=== PATIENT | female | born 1960 | race Caucasian/White ===

== ENCOUNTER 2018-09-12 20:16 | Emergency (ER) | payer OTHER ==
[~2018-09-12] VITALS: Ht 165.1 cm; Wt 132.4 kg
[~2018-09-12 20:16] MED LIST: LEVO50TA PO; LEVO88TA2 PO; SIMV20TA3 PO; TRAZ-137 PO
[2018-09-12 20:22] VITALS: BP 137/87
[2018-09-12 20:42] LABS: BASOPHILS # (AUTO) 0.07 x10^3/uL (0-0.1); BASOPHILS % (AUTO) 1 % (0-1); EOSINOPHILS # (AUTO) 0.44 x10^3/uL (0-0.4); EOSINOPHILS % (AUTO) 4 % (1-7); LYMPHOCYTES # (AUTO) 3.29 x10^3/uL (1-3.4); LYMPHOCYTES % (AUTO) 29 % (22-44); MD NO; MEAN CORPUSCULAR HEMOGLOBIN 32.4 pg (27.0-34.8); MEAN CORPUSCULAR HGB CONC 33.5 g/dL (32.4-35.8); MEAN CORPUSCULAR VOLUME 96.9 fL (80-100); MEAN PLATELET VOLUME 8.2 fL (7.4-10.4); MONOCYTES # (AUTO) 0.63 x10^3/uL (0.2-0.8); MONOCYTES % (AUTO) 6 % (2-9); NEUTROPHILS # (AUTO) 6.89 x10^3/uL (1.8-6.8); NEUTROPHILS % (AUTO) 61 % (42-75); PLATELET COUNT 288 x10^3/uL (130-400); RED BLOOD COUNT 4.73 x10^6/uL (3.82-5.3); RED CELL DISTRIBUTION WIDTH 15.2 % (9.6-15.2)
[2018-09-12 20:52] LABS: ANION GAP 9 mmol/L (5-15); CALCIUM 8.9 mg/dL (8.5-10.1); CHLORIDE 108 mmol/L (98-107); CREATININE 0.91 mg/dL (0.55-1.02)
== END 2018-09-12 22:26 | disposition home or self-care (01) ==
LOC: ED 22:14
DX: L03.113 Cellulitis of right upper limb (principal); I10 Essential (primary) hypertension; E11.9 Type 2 diabetes mellitus without complications; E03.9 Hypothyroidism, unspecified; F17.210 Nicotine dependence, cigarettes, uncomplicated
CPT/HCPCS: 36415; 80048; 85025; 99285

== ENCOUNTER 2019-05-11 08:53 | Emergency (ER) | payer OTHER ==
[~2019-05-11] VITALS: Ht 172.7 cm; Wt 140.0 kg
--- NOTE | 2019-05-11 09:24 | NUR ---
PRESENTS WITH BURROWING LEFT DEL VALLE WOUND UNRESPONSIVE TO ABX X 2 MONTHS (HX OF MRSA), LEFT FLANK PAIN & VAGINAL BLEEDING (POST MENAPAUSAL). APPEARS WELL, VITALS SIGNS UNREMARKABLE UPDATED ON ESTIMATED POC/URINE OBTAINED AND SENT TO LAB
[2019-05-11] MEDS ORDERED: LISI-170 PO (09:42)
[2019-05-11] MEDS ORDERED: METF500T27 PO (09:42)
[2019-05-11] MEDS ORDERED: LEVO200T PO (09:42)
[2019-05-11 09:45] LABS: CULTURE INDICATED? NO; MICROSCOPIC NOT IND
[2019-05-11 10:21] LABS: BASOPHILS # (AUTO) 0.04 x10^3/uL (0-0.1); BASOPHILS % (AUTO) 1 % (0-1); EOSINOPHILS # (AUTO) 0.53 x10^3/uL (0-0.4); EOSINOPHILS % (AUTO) 7 % (1-7); LYMPHOCYTES # (AUTO) 2.24 x10^3/uL (1-3.4); LYMPHOCYTES % (AUTO) 31 % (22-44); MD NO; MEAN CORPUSCULAR HEMOGLOBIN 31.9 pg (27.0-34.8); MEAN CORPUSCULAR HGB CONC 32.9 g/dL (32.4-35.8); MEAN CORPUSCULAR VOLUME 96.8 fL (80-100); MEAN PLATELET VOLUME 8.4 fL (7.4-10.4); MONOCYTES # (AUTO) 0.47 x10^3/uL (0.2-0.8); MONOCYTES % (AUTO) 7 % (2-9); NEUTROPHILS # (AUTO) 4.05 x10^3/uL (1.8-6.8); NEUTROPHILS % (AUTO) 55 % (42-75); PLATELET COUNT 252 x10^3/uL (130-400); RED BLOOD COUNT 4.41 x10^6/uL (3.82-5.3); RED CELL DISTRIBUTION WIDTH 14.8 % (9.6-15.2)
[2019-05-11 10:33] LABS: ALANINE AMINOTRANSFERASE 58 U/L (12-78); ALBUMIN 3.8 g/dL (3.4-5.0); ANION GAP 6 mmol/L (5-15); CALCIUM 8.9 mg/dL (8.5-10.1); CHLORIDE 110 mmol/L (98-107); CREATININE 0.75 mg/dL (0.55-1.02)
[2019-05-11 10:35] LABS: ALKALINE PHOSPHATASE 74 U/L (45-117); BILIRUBIN,TOTAL 0.3 mg/dL (0.2-1.0); TOTAL PROTEIN 6.7 g/dL (6.4-8.2)
--- NOTE | 2019-05-11 10:36 | NUR ---
WITH REASSESSMENT PATIENT RESTING COMFORTABLY ON GURNEY VITAL STABLE ON NIBP/POX MOST OF TESTING RESULTED W/ EXCEPTION OF ULTRASOUND-PROGRAM ASSISTANT CALLED RADIOLOGY. DEPARTMENT VERY BUSY AND THERY DON'T ESTIMATE SHE WILL START THE EXAM FOR ANOTHER 45MINUTES PROVIDER MADE AWARE
[2019-05-11 11:00] VITALS: BP 102/33
== END 2019-05-11 12:11 | disposition home or self-care (01) ==
LOC: ED 11:13
DX: S39.012A Strain of muscle, fascia and tendon of lower back, initial encounter (principal); B35.4 Tinea corporis; N95.0 Postmenopausal bleeding; I10 Essential (primary) hypertension; E11.9 Type 2 diabetes mellitus without complications; E03.9 Hypothyroidism, unspecified; E05.90 Thyrotoxicosis, unspecified without thyrotoxic crisis or storm; X58.XXXA Exposure to other specified factors, initial encounter; Y93.89 Activity, other specified; Y92.89 Other specified places as the place of occurrence of the external cause; Y99.8 Other external cause status
CPT/HCPCS: 36415; 76830; 80053; 81003; 83690; 85025; 99284

== ENCOUNTER 2020-11-12 20:00 | Emergency (ER) | payer OTHER ==
[~2020-11-12] VITALS: Ht 172.7 cm; Wt 150.4 kg
[~2020-11-12 20:00] MED LIST changes: +LEVO200T PO; +LISI-170 PO; +METF500T27 PO; +SIMV20TA19 PO; -SIMV20TA3 PO; -TRAZ-137 PO; +TRAZ-175 PO
[2020-11-12] MEDS ORDERED: SODIUM CHLORIDE FLUSH 10ML SYR IVF ONE (21:00)
[2020-11-12 21:09] LABS: MICROSCOPIC INDICATED
[2020-11-12 21:18] LABS: BASOPHILS % (AUTO) 1 % (0-1); EOSINOPHILS % (AUTO) 6 % (1-7); LYMPHOCYTES % (AUTO) 32 % (22-44); MEAN CORPUSCULAR HEMOGLOBIN 30.6 pg (27.0-34.8); MEAN CORPUSCULAR HGB CONC 33.4 g/dL (32.4-35.8); MEAN PLATELET VOLUME 8.7 fL (7.4-10.4); MONOCYTES % (AUTO) 8 % (2-9); NEUTROPHILS % (AUTO) 54 % (42-75); PLATELET COUNT 213 x10^3/uL (130-400); RED BLOOD COUNT 4.66 x10^6/uL (3.82-5.3); RED CELL DISTRIBUTION WIDTH 13.9 % (9.6-15.2)
[2020-11-12 21:26] LABS: MD NO
[2020-11-12 21:31] LABS: ALBUMIN 3.9 g/dL (3.4-5.0); ANION GAP 7 mmol/L (5-15); CHLORIDE 101 mmol/L (98-107)
[2020-11-12 21:41] LABS: FREE T4 (FREE THYROXINE) 1.56 ng/dL (0.76-1.46)
[2020-11-12] MEDS ORDERED: INSULIN SINGLE DOSE, ER ONE (21:46)
[2020-11-12 21:53] VITALS: BP 127/63
[2020-11-12] MEDS ORDERED: INSULIN REGULAR 100 UNITS/ML, 3ML VIAL SQ-INSULIN ONE (22:00)
--- NOTE | 2020-11-12 22:40 | NUR ---
SLIME DELEON AT BEDSIDE WITH PT. GLUCOSE CHECK 416 AT THIS TIME.
== END 2020-11-12 23:22 | disposition home or self-care (01) ==
LOC: ED 22:41
DX: N92.1 Excessive and frequent menstruation with irregular cycle (principal); N93.8 Other specified abnormal uterine and vaginal bleeding; I10 Essential (primary) hypertension; E11.9 Type 2 diabetes mellitus without complications; J44.9 Chronic obstructive pulmonary disease, unspecified; E03.9 Hypothyroidism, unspecified; F17.200 Nicotine dependence, unspecified, uncomplicated; Z90.49 Acquired absence of other specified parts of digestive tract
CPT/HCPCS: 36415; 76830; 80048; 81001; 82040; 84439; 84443; 85025; 99284; J1815

== ENCOUNTER → 2021-01-12 | Outpatient (CLI) | payer OTHER ==
[~2021-01-12] MED LIST changes: +FURO40TA6 PO; +GLIM4TAB8 PO; +LORA-974 PO; +LOSA1TAB22 PO; +METF10007 PO; +ROSU20TA2 PO; +SEMA1PEN SQ
[2021-01-12 11:46] LABS: MICROSCOPIC NOT IND
[2021-01-12 11:58] LABS: ALANINE AMINOTRANSFERASE 63 U/L (12-78); ALBUMIN 4.4 g/dL (3.4-5.0); ANION GAP 8 mmol/L (5-15); CALCIUM 9.5 mg/dL (8.5-10.1); CHLORIDE 106 mmol/L (98-107); CREATININE 0.79 mg/dL (0.55-1.02)
[2021-01-12 12:01] LABS: ALKALINE PHOSPHATASE 115 U/L (45-117); BILIRUBIN,TOTAL 0.7 mg/dL (0.2-1.0); TOTAL PROTEIN 7.3 g/dL (6.4-8.2)
[2021-01-12 12:20] LABS: BASOPHILS % (AUTO) 1 % (0-1); EOSINOPHILS % (AUTO) 7 % (1-7); LYMPHOCYTES % (AUTO) 33 % (22-44); MEAN CORPUSCULAR HEMOGLOBIN 30.3 pg (27.0-34.8); MEAN CORPUSCULAR HGB CONC 33.3 g/dL (32.4-35.8); MEAN PLATELET VOLUME 9.1 fL (7.4-10.4); MONOCYTES % (AUTO) 8 % (2-9); NEUTROPHILS % (AUTO) 51 % (42-75); PLATELET COUNT 246 x10^3/uL (130-400); RED BLOOD COUNT 4.82 x10^6/uL (3.82-5.3); RED CELL DISTRIBUTION WIDTH 13.7 % (9.6-15.2)
[2021-01-12 12:25] LABS: MD NO
== END | disposition home or self-care (01) ==
LOC: STAR 09:23
PROVIDERS: ATTEND Obstetrics & Gynecology
DX: Z01.812 Encounter for preprocedural laboratory examination (principal); Z20.822 Contact with and (suspected) exposure to COVID-19
CPT/HCPCS: 36415; 71046; 80053; 81003; 84702; 85025; 93005; U0003

== ENCOUNTER 2021-01-16 09:36 | Day surgery (SDC) | payer OTHER ==
[~2021-01-16] VITALS: Ht 172.7 cm; Wt 134.7 kg
[2021-01-16 10:19] VITALS: BP 130/84
[2021-01-16] MEDS ORDERED: LACTATED RINGERS 1,000 ML IV SCH (10:30)
[2021-01-16] MEDS ORDERED: CHLORHEXIDINE 15 ML UDC MM ONE (10:30)
[2021-01-16] MEDS ORDERED: FENTANYL PF 250 MCG/5ML ONE (11:56)
[2021-01-16] MEDS ORDERED: MIDAZOLAM 1 MG/ML, 2ML ONE (11:56)
[2021-01-16] MEDS ORDERED: BUPIVACAINE/PF 0.25% ONE (12:14)
[2021-01-16] MEDS ORDERED: EPINEPHRINE 1 MG/ML, 1ML ONE (12:14)
[2021-01-16] MEDS ORDERED: SILVER NITRATE STICK TP ONE (12:14)
[2021-01-16] MEDS ORDERED: D5%-LACTATED RINGERS 1,000 ML IV SCH (12:23)
[2021-01-16] MEDS ORDERED: DEXAMETHASONE 4 MG/ML, 5ML ONE (13:11)
[2021-01-16] MEDS ORDERED: CEFAZOLIN 1,000 MG ONE ×2 (13:12)
[2021-01-16] MEDS ORDERED: ROCURONIUM 10MG/ML,5ML ONE (13:13)
[2021-01-16] MEDS ORDERED: SUCCINYLCHOLINE 20 MG/ML, 10ML ONE (13:13)
[2021-01-16] MEDS ORDERED: PROPOFOL 10 MG/ML, 20ML ONE (13:13)
[2021-01-16] MEDS ORDERED: ONDANSETRON 2MG/ML, 2ML ONE ×2 (13:14)
[2021-01-16] MEDS ORDERED: FENTANYL PF 100 MCG/2ML IV PRN (13:30)
[2021-01-16] MEDS ORDERED: MEPERIDINE/PF 25MG/0.5ML IVPush PRN (13:30)
[2021-01-16] MEDS ORDERED: OXYcodone 5 MG/5 ML ORAL.SOL UDC PO PRN (13:30)
[2021-01-16] MEDS ORDERED: ACETAMINOPHEN 325 MG TABLET PO PRN (13:30)
[2021-01-16] MEDS ORDERED: LABETALOL 5MG/ML, 20ML IV PRN (13:30)
[2021-01-16] MEDS ORDERED: PROMETHAZINE 25 MG/ML, 1ML IVPush PRN (13:30)
[2021-01-16] MEDS ORDERED: HYDROmorphone 1 MG/ML, 1ML INJ IVPush PRN (13:30)
[2021-01-16] MEDS ORDERED: ONDANSETRON 2MG/ML, 2ML IVPush PRN (13:30)
[2021-01-16] MEDS ORDERED: hydrALAzine 20 MG/ML, 1ML IV PRN (13:30)
[2021-01-16] MEDS ORDERED: IBUP-1222 PO (13:57)
[2021-01-16] MEDS ORDERED: FENTANYL PF 100 MCG/2ML ONE (14:36)
[2021-01-16] MEDS ORDERED: ACETAMINOPHEN 650 MG/20.3 ML UDC ONE (14:37)
[2021-01-16] MEDS ORDERED: OXYcodone 5 MG/5 ML ORAL.SOL UDC ONE (14:37)
== END 2021-01-16 17:08 | disposition home or self-care (01) ==
LOC: OUT 09:36
PROVIDERS: ATTEND Obstetrics & Gynecology
DX: N95.0 Postmenopausal bleeding (principal); N84.0 Polyp of corpus uteri; I10 Essential (primary) hypertension; E11.9 Type 2 diabetes mellitus without complications; E78.00 Pure hypercholesterolemia, unspecified; E66.01 Morbid (severe) obesity due to excess calories; Z79.84 Long term (current) use of oral hypoglycemic drugs; Z79.890 Hormone replacement therapy; Z79.899 Other long term (current) drug therapy; Z90.49 Acquired absence of other specified parts of digestive tract
CPT/HCPCS: 36415; 58558; 82962; 86850; 86900; 88305; J0171; J0330; J0690; J1100; J2250; J2405; J2704; J3010; J7120; J7121